=== PATIENT | female | born 1990 | race Two or more races ===

== ENCOUNTER 2019-05-18 18:57 | Emergency (ER) | payer MEDICAID ==
[~2019-05-18] VITALS: Ht 154.9 cm; Wt 61.7 kg
[~2019-05-18 18:57] MED LIST: CYCLOBENZAPRINE10 MG ORAL; IBUPROFEN800 MG ORAL
[2019-05-18 19:15] VITALS: BP 125/84
--- NOTE | 2019-05-18 19:15 | NUR ---
ED Nurse Note: Pt AAOX4, vss, no acute distress. Pt presenting with rashes on her body, no open sores or wounds. Pt O2 saturation 100% with no labored breathing.
[2019-05-18] MEDS ORDERED: ZYRTEC10 MG ORAL (19:22)
[2019-05-18] MEDS ORDERED: PREDNISONE20 MG ORAL (19:22)
--- NOTE | 2019-05-18 19:26 | Emergency Room Report ---
History of Present Illness General Chief Complaint: Skin Rash/Abscess Source: Patient Present Illness HPI Disclaimer: Please note that this report is being documented using DRAGON technology. This can lead to erroneous entry secondary to incorrect interpretation by the dictating instrument. HPI: 29-year-old otherwise healthy female presents for evaluation of diffuse body wide rash. Symptoms began yesterday after eating in [employer] and then going over to her uncles house where she covered herself in a blanket. Shortly after covering herself with a blanket she noted a raised urticarial rash that was itchy over the arms, torso and face. She has been using Benadryl with some control of her symptoms however the rash appears to have persisted and continues to complain of itchiness. Denies any shortness of breath, wheezing, vomiting, lightheadedness, palpitations, diarrhea. No known allergens. No other contacts with rash. She has eaten at [employer] several times in the past without symptoms. She is breast-feeding and is 1 year 7 months . PMH: Denies PSH: Denies Allergies: Denies Social Hx: Denies drug or alcohol use Allergies: Coded Allergies: No Known Allergies (Unverified , 01/08/15) Patient History Last Menstrual Period: 05/2017 Now: No - curently : 2 Para: 2 Nursing Documentation-PMH Past Medical History: No Stated History Review of Systems All Other Systems: negative except mentioned in HPI Physical Exam Vital Signs Date Time Temp Pulse Resp B/P (MAP) Pulse Ox O2 Delivery O2 Flow Rate FiO2 05/18/19 19:07 98.4 77 18 120/83 (95) 99 Room Air General: Awake and alert, no acute distress HEENT: NC/AT. EOMI. no stridor Cardiovascular: RRR. S1 and S2 normal. No murmur appreciated Resp: Normal work of breathing. No cough, wheezing or crackles appreciated. No respiratory distress Abdomen: Abdomen is soft, nondistended. Nontender Skin: There are slightly raised urticaria diffusely over the upper extremities, abdomen, chest and back. Nikolsky negative. No weeping, no vesicles MSK: Normal tone and bulk. Moving all extremities. No obvious deformity. Neuro: Awake and alert. Mentating appropriately. Medical Decision Making Diagnostic Impression: Primary Impression: Rash ER Course 29-year-old female presents for evaluation of urticaria and itchy rash present for 1 day after eating and not burger and wrapping herself in a blanket. May be an allergic reaction the patient has no signs of anaphylaxis. She has been responding to Benadryl but rash and itchiness persist. She is requesting additional medications. No evidence of anaphylaxis. Arrives with stable vital signs. Will start cetirizine and prednisone for 3 days and monitor for improvement. She will require follow-up with her PMD. I counseled her on switching to formula feeds for the duration while she is on medication or if that is not possible she should wait 4 hours between taking the medication and breast-feeding. She understands and agrees with this treatment and understands the need for follow-up with her PMD. We discussed reasons to return to the emergency department. She will be discharged home Last Vital Signs Date Time Temp Pulse Resp B/P (MAP) Pulse Ox O2 Delivery O2 Flow Rate FiO2 05/18/19 19:07 98.4 77 18 120/83 (95) 99 Room Air Disposition: HOME, SELF-CARE Condition: Stable Scripts Cetirizine Hcl* (ZYRTEC*) 10 Mg Tablet 10 MG ORAL DAILY for 5 Days, #5 TAB 0 Refills Prov: Gee Alvarado MD 05/18/19 Prednisone* (PREDNISONE*) 20 Mg Tablet 40 MG ORAL DAILY for 3 Days, #6 TAB Prov: Gee Alvarado MD 05/18/19 Referrals: Riaz Mathews [facility] Patient Instructions: Rash Additional Instructions: He will be treated for a possible allergic reaction. Continue using Benadryl but we will also add cetirizine and prednisone for 3 days. Do not breast-feed within 4 hours of taking these medications. Switch to bottlefeeding for several days if possible. If your rash gets worse or if you develop difficulty breathing, vomiting, diarrhea or any other symptoms return to the emergency department for reevaluation otherwise follow-up with your doctor in 2 to 3 days. Gee Alvarado MD May 18, 2019 19:26
[2019-05-18 19:30] VITALS: BP 128/82
--- NOTE | 2019-05-18 19:30 | NUR ---
ER DISCHARGE NOTE: Patient is cleared to be discharged per ERMD, pt is aox4, on room air, with stable vital signs. pt was given dc and prescription instructions, pt was able to verbalize understanding, pt id band removed without complications. pt is able to ambulate with steady gait. pt took all belongings. Patient states she feels better after talking to the MD.
== END 2019-05-18 19:30 | disposition home or self-care (01) ==
LOC: EMR 19:17
DX: R21 Rash and other nonspecific skin eruption (principal)
CPT/HCPCS: 99282